=== PATIENT | female | born 1990 | race Caucasian/White ===

== ENCOUNTER 2018-02-03 17:11 | Emergency (ER) | payer OTHER ==
[2018-02-03 18:05] VITALS: TEMP 98.4
--- NOTE | 2018-02-03 19:51 | ED ---
General Adult HPI - General Chief complaint: Skin/Abscess/Foreign Body Stated complaint: Bites on arms Time Seen by Provider: 02/03/18 19:09 Source: patient, RN notes reviewed Mode of arrival: ambulatory Limitations: no limitations - History of Present Illness Initial comments: 27-year-old female since to the emergency department for a chief complaint of rash to the left upper arm 2 days. Patient states they might be bites but she is not sure. Patient has no history of bed bugs or scabies. Patient states the area is pruritic. Patient has not tried anything for the symptoms. Patient admits to changing detergents a couple days ago. Patient agrees that it may be related to this. Patient denies any fevers or chills at home. Patient denies any swelling of the lips tongue or throat. Patient denies any generalized rash.Patient has no other complaints at this time including shortness of breath, chest pain, abdominal pain, nausea or vomiting, headache, or visual changes. - Related Data Home Medications Medication Instructions Recorded Confirmed Albuterol Inhaler [Ventolin Hfa 2 puff INHALATION RT-Q6H PRN 02/03/18 02/03/18 Inhaler] Previous Rx's Medication Instructions Recorded Hydrocortisone Cream 1 applic TOPICAL BID 7 Days #1 tube 02/03/18 [Hydrocortisone 1% Cream] Loratadine [Claritin] 10 mg PO DAILY PRN #20 tab 02/03/18 diphenhydrAMINE [Benadryl] 25 mg PO HS PRN #20 capsule 02/03/18 Allergies Allergy/AdvReac Type Severity Reaction Status Date / Time No Known Allergies Allergy Verified 02/03/18 19:07 Review of Systems ROS Statement: Those systems with pertinent positive or pertinent negative responses have been documented in the HPI. ROS Other: All systems not noted in ROS Statement are negative. Past Medical History Past Medical History: No Reported History History of Any Multi-Drug Resistant Organisms: None Reported Past Surgical History: No Surgical Hx Reported Smoking Status: Current every day smoker Past Alcohol Use History: None Reported Past Drug Use History: None Reported General Exam Limitations: no limitations General appearance: alert, in no apparent distress Eye exam: Present: normal appearance, PERRL, EOMI. Absent: scleral icterus, conjunctival injection, periorbital swelling ENT exam: Present: normal exam, normal oropharynx (No lesions on mucous membranes), normal external ear exam Neck exam: Present: normal inspection, full ROM. Absent: tenderness, meningismus, lymphadenopathy Respiratory exam: Present: normal lung sounds bilaterally. Absent: respiratory distress, wheezes, rales, rhonchi, stridor Cardiovascular Exam: Present: regular rate, normal rhythm, normal heart sounds. Absent: systolic murmur, diastolic murmur, rubs, gallop, clicks Extremities exam: Present: full ROM (Full range of motion in the left arm), normal capillary refill (Refill less than 2 seconds and radial pulse 2+ in the left upper extremity.). Absent: tenderness (No tenderness in the left arm), joint swelling (No swelling anywhere in the left upper extremity.) Skin exam: Present: rash (There is erythematous papular rash over the right upper extremity. No excoriations noted. Negative Nikolsky sign. No signs of infection, spreading redness, streaking redness, or cellulitic changes. No abscess is noted. No breaks in the skin.) Course Vital Signs 02/03/18 18:02 Temperature 98.4 F Pulse Rate 18 L Respiratory 81 H Rate Blood Pressure 112/63 O2 Sat by Pulse 100 Oximetry Medical Decision Making - Medical Decision Making 27-year-old female presents to the emergency determine for chief complaint of rash on the left upper arm x 3 days. Patient states she thinks they're bites but does not arm or being bitten and denies any histories of having problems with bugs in the home. Patient states she did change laundry detergent 2 days ago and agrees this may be the cause. Patient states the area is pruritic. Patient denies fevers or chills at home. Patient denies any pain in the arm. Patient denies any other illnesses at this time. On exam there is a small erythematous papules on the lateral left upper arm. No signs of infection or cellulitic changes necessitating antibiotics at this point. Patient will be given Claritin for the day and Benadryl at night. She is apply hydrocortisone cream to the area. She is to follow-up with a primary care provider in one to 2 days. One was referred to her. If symptoms worsen she is to return to the emergency department immediately. Disposition Clinical Impression: Contact dermatitis Disposition: HOME SELF-CARE Condition: Good Instructions: Contact Dermatitis (ED) Additional Instructions: Please take Claritin in the day and Benadryl at night as directed. Apply hydrocortisone cream to affected arm twice per day. Follow up with primary care provider in one to 2 days. Return to the emergency department if you have any worsening symptoms, signs of infection, or develops fevers. Prescriptions: diphenhydrAMINE [Benadryl] 25 mg PO HS PRN #20 capsule PRN Reason: Itching Hydrocortisone Cream [Hydrocortisone 1% Cream] 1 applic TOPICAL BID 7 Days #1 tube Loratadine [Claritin] 10 mg PO DAILY PRN #20 tab PRN Reason: Itching Is patient prescribed a controlled substance at d/c from ED?: No Referrals: None,Stated [Primary Care Provider] - 1-2 days Rodolfo Torres MD [STAFF PHYSICIAN] - 1-2 days Time of Disposition: 19:47
[2018-02-03 20:05] VITALS: BP 113/65; PULSE 82; RESP 18
== END 2018-02-03 20:04 | disposition home or self-care (01) ==
LOC: EC 17:11
DX: L25.9 Unspecified contact dermatitis, unspecified cause (principal); F17.200 Nicotine dependence, unspecified, uncomplicated
CPT/HCPCS: 99282

== ENCOUNTER 2024-12-10 19:07 | Outpatient (CLI) | payer OTHER ==
--- NOTE | 2024-12-10 21:20 | US ---
EXAMINATION TYPE: US OB >= 14 wk fetus DATE OF EXAM: 12/10/2024 COMPARISON: None CLINICAL INDICATION: Female, 34 years old with history of dates, and bleeding; Pt states she had a pa p smear today and afterwards noticed a lot of blood. Spotting now, no clots noted. TECHNIQUE: Transabdominal (TA) FINDINGS: GESTATIONAL AGE / DATING Physician Established: (16 weeks/0 days) EDC: 05/27/25 Dates by First Scan: No previous this is first scan Dates by Current Scan: (14 weeks/6 days) EDC: 06/04/25 Beta HCG (if available): Not available at this time SURVEY IUP: Single PLACENTA: Posterior PREVIA: Low Lying NINO: appears wnl CERVICAL LENGTH (transabdominal: norm > 3.0cm): 3.2 cm .) BIOMETRY PRESENTATION: Variable LIE: Longitudinal BPD: 2.8 cm 15 weeks / 1 days HC: 10.5 cm 15 weeks / 0 days AC: 8.3 cm 14 weeks / 5 days FL: 1.49 cm 14 weeks / 3 days ESTIMATED WEIGHT IN GRAMS: 101 grams ESTIMATED WEIGHT IN LBS/OZ: 0 lbs. 4 oz. WEIGHT PERCENTAGE BASED ON ESTABLISHED DATES: <2% HC/AC: 1.26 Normal FL/AC: 18% normal HEART RATE: 169 bpm RHYTHM: Normal Hypoechoic avascular area seen anterior and adjacent to cervix measuring 8.1 x 3.1cm IMPRESSION: 1. Single live intrauterine gestation ultrasound age 14 weeks 6 days. 2. Placenta previa with avascular area adjacent to the placenta possibly undercutting underneath the placenta. Correlate for coagulated/blood products correlate for history of trauma. Close clinical fo llow-up recommended with repeat ultrasound at dedicated imaging Center. Findings communicated to Tutu Limon MD on 12/10/2024 9:[address] Amrik Cazares. [facility], , 12/10/2024 9:17 PM
[2024-12-10 22:00] VITALS: BP 147/75; PULSE 103; RESP 16; TEMP 98
--- NOTE | 2025-01-08 11:28 | P.MSEPDOC ---
Presenting Problems - Arrival Data Date of Arrival on Unit: 12/10/24 Time of Arrival on Unit: 19:07 Mode of Transport: Stretcher - Complaint OB-Reason for Admission/Chief Complaint: Vaginal Bleeding Comment: Patient presents to triage with complaints of vaginal bleeding starting around 1600 after a PAP in office around 1100 today. Medical History - Information : 5 Para: 4 Term: 3 : 1 Abortions: Spontaneous or Elective: 0 Number of Living Children: 4 - Gestational Age Gestational Age by DUY (wks/days): 16 Weeks and 0 Days - History Complications: Placenta Previa Comment: OB US > = 14 weeks during this triage visit. See image report. Review of Systems - Review of Systems Constitutional: No problems Breast: No problems ENT: No problems Cardiovascular: No problems Respiratory: No problems Gastrointestinal: No problems Genitourinary: No problems Musculoskeletal: No problems Neurological: No problems Skin: No problems Vital Signs - Temperature Temperature: 98.0 F Temperature Source: Temporal Artery Scan - Pulse Pulse Oximetery Pulse Rate: 103 Pulse Assessment Method: Pulse Oximetry - Respirations Respiratory Rate: 16 Oxygen Delivery Method: Room Air O2 Sat by Pulse Oximetry: 98 - Blood Pressure Right Arm Blood Pressure: 147/75 Blood Pressure Mean: 99 Blood Pressure Source: Automatic Cuff Medical Screen Scoring - Cervical Exam Membranes: Intact - Uterine Contractions Intensity: Absent Resting: Soft to palpation Physician Notification - Physician Notified Physician Notified Date: 12/10/24 Physician Notified Time: 19:39 Physician: Tutu Limon New Order Received: Yes (OB US >= 14 wks.) Maternal Triage Index - Maternal Triage Index Presenting for scheduled procedure w/no complaint: No - Stat/Priority 1 Stat Priority 1: No - Urgent/Priority 2 Urgent Priority 2: Yes Provider Notified: Tutu Limon Provider Notified Time: 19:39 Criteria Met for Priority 2: Patient presents to triage with complaints of vaginal bleeding starting around 1600 after a PAP in office around 1100 today. Disposition - Disposition OB Disposition: Discharge to home Discharge Date: 12/10/24 Discharge Time: 21:37 I agree with the RN Medical Screening Exam: Yes Physician's MSE Comment: I have neither seen nor examined the patient. Case reviewed; plan agreed upon as documented in EMR&OBIX.: Yes Diagnosis: RELATED CONDITIONS, UNSPECIFIED, SECOND TRIMESTER
== END 2024-12-10 21:37 | disposition home or self-care (01) ==
LOC: FBPOP 19:07
PROVIDERS: ATTEND Obstetrics & Gynecology
DX: O26.852 Spotting complicating pregnancy, second trimester (principal); O99.332 Smoking (tobacco) complicating pregnancy, second trimester; N93.9 Abnormal uterine and vaginal bleeding, unspecified; F17.200 Nicotine dependence, unspecified, uncomplicated; Z3A.14 14 weeks gestation of pregnancy; Z91.040 Latex allergy status
CPT/HCPCS: 76805; G0463; 99215

== ENCOUNTER → 2025-01-13 | Outpatient (CLI) | payer MEDICARE, OTHER ==
--- NOTE | 2025-01-13 14:48 | US ---
EXAMINATION TYPE: US OB anatomy transabd DATE OF EXAM: 01/13/2025 COMPARISON: 12/10/2024 CLINICAL INDICATION: Female, 34 years old with history of Z34.90 CARE; Patient denies any si gns or symptoms. Hx placenta previa with heterogenous area within uterus TECHNIQUE: with grayscale imaging of single gestation. FINDINGS: EXAM MEASUREMENTS: GESTATIONAL AGE / DATING Physician Established: (20 weeks/6 days) EDC: Dates by LMP: ( weeks/ days) EDC: Dates by First Scan: ( weeks/ days) EDC: Dates by Current Scan for: ( weeks/ days) EDC: SURVEY IUP: Single PLACENTA: Posterior PREVIA: Marginal NINO: 9 cm Normal CERVICAL LENGTH (transabdominal: norm > 3.0cm): 3.0 cm CERVICAL LENGTH (transvaginal: norm> 2.5cm): NA cm (Supplemental transvaginal imaging performed to verify cervical length.) BIOMETRY PRESENTATION: Breech LIE: Longitudinal BPD: 3.94 cm 18 weeks / 0 days HC: 15.74 cm 18 weeks / 5 days AC: 14.04 cm 19 weeks / 3 days FL: 2.9 cm 19 weeks / 0 days ESTIMATED WEIGHT IN GRAMS: 273 grams ESTIMATED WEIGHT IN LBS/OZ: 0 lbs. 10 oz. WEIGHT PERCENTAGE BASED ON ESTABLISHED DATE: <2 % HC/AC: 1.12 Normal FL/AC: 21% Normal HEART RATE: 161 bpm RHYTHM: Normal ANATOMY SEEN (within normal limits): * Lateral Vent (< 1 cm) 0.84 cm * Cisterna Magna (< 1.1 cm) 0.28 cm * Nuchal Fold (< 0.6 cm) 1.41 cm * Cerebellum (varies with age) 2.03 cm Choroid Plexus (bilateral) Midline Falx Cavus Septi Pellucidi Four Chamber Heart Outflow tracts: LVOT/RVOT Stomach Situs Nose / Lips Diaphragm Kidneys (bilateral) Bladder Cord Insert Three Vessel Cord Longitudinal Spine Transverse Spine Arms (bilateral) Legs (bilateral) ANATOMY SEEN (does not appear within normal limits):All anatomy seen and appears within normal limits ANATOMY NOT SEEN: All seen MATERNAL WALL MEASUREMENT: cm from skin to anterior uterine wall (if exam limited due to body habitus ). ? New bleed seen right JAHAIRA between previous finding and placenta = 7.7 x 1.5 x 7.7 cm Fetus measuring 2 weeks and 6 days behind IMPRESSION: Single viable intrauterine with discordant dates. New collection seen as discussed above wh ich may reflect a new subchorionic hemorrhage. [facility], , 01/13/2025 2:45 PM
== END | disposition home or self-care (01) ==
LOC: RADUSWWP 13:18
DX: O32.1XX0 Maternal care for breech presentation, not applicable or unspecified (principal); O46.92 Antepartum hemorrhage, unspecified, second trimester; Z3A.20 20 weeks gestation of pregnancy
CPT/HCPCS: 76811